=== PATIENT | female | born 2000 | race Two or more races ===

== ENCOUNTER 2021-08-31 04:31 | Emergency (ER) | payer OTHER ==
[~2021-08-31] VITALS: Ht 162.6 cm; Wt 98.9 kg
[2021-08-31] MEDS ORDERED: SYNTHROID88 MCG PO (04:39)
[2021-08-31] MEDS ORDERED: NAPROXEN SODIU550 MG PO (07:33)
== END 2021-08-31 07:44 ==
LOC: ER 04:31
DX: N94.6 Dysmenorrhea, unspecified (principal); R10.2 Pelvic and perineal pain; E03.9 Hypothyroidism, unspecified

== ENCOUNTER 2021-10-22 11:42 | Emergency (ER) | payer OTHER ==
[~2021-10-22] VITALS: Ht 162.6 cm; Wt 102.1 kg
[~2021-10-22 11:42] MED LIST: NAPROXEN SODIU550 MG PO; SYNTHROID88 MCG PO
[2021-10-22] MEDS ORDERED: LEVOTHYROXINE112 MCG PO (11:54)
== END 2021-10-22 14:34 | disposition home or self-care (01) ==
LOC: ER 11:42
DX: J45.909 Unspecified asthma, uncomplicated (principal); Z20.822 Contact with and (suspected) exposure to COVID-19

== ENCOUNTER 2021-11-26 01:18 | Emergency (ER) | payer OTHER ==
[~2021-11-26] VITALS: Ht 162.6 cm; Wt 102.1 kg
[~2021-11-26 01:18] MED LIST changes: +LEVOTHYROXINE112 MCG PO
== END 2021-11-26 04:06 | disposition home or self-care (01) ==
LOC: ER 01:18
DX: R21 Rash and other nonspecific skin eruption (principal); Z88.8 Allergy status to other drugs, medicaments and biological substances

== ENCOUNTER 2022-02-26 17:53 | Emergency (ER) | payer OTHER ==
[~2022-02-26] VITALS: Ht 162.6 cm; Wt 99.8 kg
[2022-02-26] MEDS ORDERED: ADVIL ×2 (18:56→18:57)
[2022-02-26] MEDS ORDERED: SYNTHROID88 MCG (18:57)
== END 2022-02-26 23:59 | disposition home or self-care (01) ==
LOC: ER
DX: A05.9 Bacterial foodborne intoxication, unspecified (principal); K52.9 Noninfective gastroenteritis and colitis, unspecified; Z88.8 Allergy status to other drugs, medicaments and biological substances